=== PATIENT | female | born 1975 | race Caucasian/White ===

== ENCOUNTER 2017-03-11 00:28 | Day surgery (SDC) | payer MEDICAID ==
[~2017-03-11] VITALS: Ht 162.6 cm; Wt 47.2 kg
[~2017-03-11 00:28] MED LIST: ACE500 PO; ARI10 PO; ATOM25CA5 PO; ATOM40CA7 PO; ATOM80CA3 PO; BACOUD TP; BENZ1 PO; CALC1TAB24 PO; CLOB15OI16 TP; CLON-388 PO; CYAN250013 PO; DEXM20PT PO; DIA5 PO; DIP5L PO; DIPH-740 PO; DOC100 PO; DOCU-202 PO; DULO30CA4 PO; DULO60CA56 PO; ESTR0.9T14 PO; FEXO180T74 PO; FEXO180T87 PO; GABA-549 PO; HYDR28.415 TP; HYDR30CR10 TP; IBU200 PO; IBUP-56 PO; LACT250L10 PO; LAMO100T52 PO; LEVO-3 PO; LITH300T18 PO; LOPE-109 PO; LOR1 PO; MULT1CAP41 PO; NAPR220T86 PO; OLAN10TA19 PO; OLAN10TA25 PO; OLOOD OD; ONDA4TAB PO; POLY17PO25 PO; RAN150 PO; RANI-318 PO; VITS42.53 TOP; [UNRECOGNIZED DRUG - CODE] PO; [UNRECOGNIZED DRUG - CODE] TP; [UNRECOGNIZED DRUG - CODE] TP; [UNRECOGNIZED DRUG - OTHER] PO; [UNRECOGNIZED DRUG - OTHER] PO
[2017-03-11] MEDS ORDERED: KETAMINE HCL 500 MG/5 ML VIAL ONE (09:18)
[2017-03-11] MEDS ORDERED: MIDAZOLAM 10 MG/5 ML SYRUP PO ONE ×2 (11:00→13:00)
[2017-03-11] MEDS ORDERED: NORMOSOL R SOLN(*) 1000 ML BAG 1,000 ML IV PRN (13:00)
[2017-03-11] MEDS ORDERED: FAMOTIDINE 20 MG TAB PO ONE (13:00)
[2017-03-11] MEDS ORDERED: TROPICAMIDE 1% OP ONE (13:00)
[2017-03-11 15:23] LABS: PLATELET COUNT, AUTOMATED 399 K/uL (150-450)
[2017-03-11 17:04] LABS: LDL CHOLESTEROL 106 mg/dl
--- NOTE | 2017-03-12 21:49 | OPERATIVE REPORT 1 ---
EVENT DATE: March 11, 2017 SURGEON: Kevin Dozier MD ANESTHESIOLOGIST: John Kimball MD ANESTHESIA: LMA. PREOPERATIVE DIAGNOSES 1. Bilateral cerumen impaction. 2. Autism. POSTOPERATIVE DIAGNOSES 1. Bilateral cerumen impaction. 2. Autism. PROCEDURES PERFORMED 1. Bilateral cerumen disimpaction. 2. Ear examination under anesthesia. INDICATIONS Please refer to the preoperative note. DESCRIPTION OF PROCEDURE The patient was positively identified in the preoperative area. She was accompanied there by her guardian. Risks discussed included, but were not limited to tympanic membrane perforation and those associated with anesthesia. She was brought back to the operative suite, laid supine on the operative table , and anesthesia was administered. Once asleep, the patient was positioned and prepped and draped in the usual sterile fashion. The microscope was brought into place, and a speculum was placed in the right external auditory canal. Cerumen was removed. The tympanic membrane is intact and clear. I then proceeded with the contralateral ear. In a similar fashion, a speculum was placed. The cerumen was removed. The tympanic membrane was visualized and intact and clear. The patient was then turned over to Dr. Kim for an eye exam under anesthesia. Estimated blood loss for my portion of the case was none. No complications. JASON
== END 2017-03-11 17:15 | disposition home or self-care (01) ==
LOC: OR 00:28
PROVIDERS: ATTEND Otolaryngology
DX: H61.23 Impacted cerumen, bilateral (principal); F84.0 Autistic disorder; G80.9 Cerebral palsy, unspecified; E03.9 Hypothyroidism, unspecified; K21.9 Gastro-esophageal reflux disease without esophagitis; L40.9 Psoriasis, unspecified; F32.9 Major depressive disorder, single episode, unspecified
CPT/HCPCS: 36415; 80178; 82040; 82247; 82306; 82310; 82374; 82435; 82465; 82565; 82607; 82947; 83036; 83718; 84075; 84132; 84155; 84295; 84436; 84443; 84450; 84460; 84478; 84481; 84520; 85025

== ENCOUNTER → 2017-04-30 | Outpatient (CLI) | payer MEDICAID ==
--- NOTE | 2017-04-30 15:54 | RADIOLOGY IMAGING REPORT ---
FACILITY: [facility] - [place] PATIENT NAME: Tiny Lock : 1975 MR: [id number] V: [id number] EXAM DATE: ORDERING PHYSICIAN: KASHIF LACKEY TECHNOLOGIST: Location: [facility] - [place] Patient: Tiny Lock : 1975 Visit/Account:[id number] Date of Sevice: 04/30/2017 Exam type: 2 views right hip History: Right hip pain Comparison: None. Findings: Patient cannot lie flat. No definite acute fracture the pelvis or right hip. Subtle lucency of the right intratrochanteric hip region appears to represent overlapping soft tissue shadows. Degenerativ e changes are noted in the SI joints. Calcified phleboliths in the pelvis are noted. IMPRESSION: 1. No definite acute fracture or dislocation of the pelvis or right hip. Subtle lucency in the righ t intertrochanteric hip region is felt to be overlapping shadows. Report Dictated By: Arnulfo Cadet MD at 04/30/2017 3:47 PM Report E-Signed By: Arnulfo Cadet MD at 04/30/2017 3:49 PM WSN:[id number]
== END ==
LOC: RAD 15:02
PROVIDERS: ATTEND Nurse Practitioner Family
DX: M53.3 Sacrococcygeal disorders, not elsewhere classified (principal); I87.8 Other specified disorders of veins

== ENCOUNTER → 2018-01-03 | Outpatient (REF) | payer MEDICARE, MEDICAID ==
[~2018-01-03] MED LIST changes: +CIPDEXPT EACH EAR; +ESTR-33 PO; +LEV112 PO
== END ==
LOC: ZZSENDIN 14:29 → EDSTATUS 15:53
PROVIDERS: ATTEND Nurse Practitioner Family
DX: R35.0 Frequency of micturition (principal)
CPT/HCPCS: 81001

== ENCOUNTER 2018-01-08 12:54 | Emergency (ER) | payer MEDICARE, MEDICAID ==
[2018-01-08] MEDS ORDERED: KETAMINE HCL 500 MG/5 ML VIAL IM ONE (13:40)
--- NOTE | 2018-01-08 13:59 | ER Report ---
History and Physical Time Seen By MD: 13:00 Hx. of Stated Complaint: pt fell forward, presents with nose laceration and bloody nose. CP denies LOC HPI/ROS CHIEF COMPLAINT: Fall facial trauma HISTORY OF PRESENT ILLNESS: 42-year-old female history as cerebral palsy and autism had a mechanical fall onto her face has an obvious nasal laceration probable fracture due to her baseline combative mentality unable to do much of a physical exam other than what is documented patient can't give any history at this time patient is unwilling to cooperate and examination REVIEW OF SYSTEMS: Respiratory: No cough, no dyspnea. Cardiovascular: No chest pain, no palpitations. Gastrointestinal: No vomiting, no abdominal pain. Musculoskeletal: No back pain. Remainder of the 14 system rev: No Allergies: Coded Allergies: paroxetine (Verified Allergy, Mild, [facility], 03/05/14) Home Meds Active Scripts Fexofenadine Hcl (FEXOFENADINE HCL) 180 Mg Tablet, 180 MG PO QDAY, #90 TAB 4 Refills Prov:MUKUL AZUL APRNP-C 12/20/17 Estradiol (ESTRADIOL) 1 Mg Tablet, 1 TAB PO DAILY, #30 TAB 5 Refills Prov:MUKUL AZUL APRN PHARMACY MESSENGER-C 11/12/17 Reported Medications Levothyroxine Sodium (LEVOTHYROXINE SODIUM) 0.112 Mg Tab, 1 TAB PO QDAY, #90 TAB 0 Refills 10/23/17 Polyethylene Glycol 3350 (MIRALAX) 17 Gm Powd.pack, 17 GM PO, PKT 01/07/17 Clobetasol Propionate (CLOBETASOL PROPIONATE) Unknown Strength Shampoo, TP QDAY 01/07/17 Diphenhydramine Hcl (BENADRYL) 25 Mg Capsule, 25 MG PO Q6-8H, CAPSULE 01/07/17 Benztropine Mesylate (BENZTROPINE MESYLATE) 1 Mg Tablet, 1 MG PO BID 03/22/16 Cyanocobalamin (Vitamin B-12) (Vitamin B12) 2,500 Mcg Tab.chew, 1000 MG PO QDAY 03/22/16 Atomoxetine Hcl (STRATTERA) 80 Mg Capsule, 80 MG PO QDAY, #10 CAP 03/22/16 Ranitidine Hcl (RANITIDINE HCL) 150 Mg Tablet, 150 MG PO QDAY 03/22/16 Gabapentin (GABAPENTIN) 300 Mg Capsule, 300 MG PO QDAY, CAPSULE 03/22/16 Duloxetine Hcl (CYMBALTA) 60 Mg Capsule.dr, 60 MG PO QDAY, #10 CAP 03/22/16 Docusate Sodium (DOCUSATE SODIUM) 100 Mg Capsule, 100 MG PO BID, CAPSULE 03/22/16 Clonazepam (CLONAZEPAM) 0.5 Mg Tab.rapdis, 0.5 MG PO BID, #6 TAB 03/22/16 [garden blend vit] No Conflict Check, 1 TAB PO BID 03/22/16 [orchard blend vit] No Conflict Check, 1 TAB PO BID 03/22/16 Olanzapine (OLANZAPINE) 10 Mg Tablet, 10 MG PO QDAY PRN for ANXIETY 03/22/16 Naproxen Sodium (NAPROXEN SODIUM) 220 Mg Tablet, 220 MG PO BID PRN for ACHES,PAIN AND INFLAMMATION, TAB 03/22/16 [place] Carbonate (LITHIUM CARBONATE) 300 Mg Tablet, 300 MG PO BID 03/22/16 Lamotrigine (LAMOTRIGINE) 100 Mg Tablet, 200 MG PO DAILY 03/22/16 Ibuprofen (IBUPROFEN) 200 Mg Tablet, 2 TAB PO Q6H PRN for INFLAMATION, ACHES AND PAINS, TAB 03/22/16 Hydrocortisone 2.5 % 30 GM CREAM (Hydrocortisone 2.5 % 30 GM CREAM) 2.5 % Cream.appl, 1 TWAN TP BID PRN for EXCEMA 03/22/16 Hydrocortisone/Aloe Vera (HYDROCORTISONE 1% OINTMENT) 28 Gm Oint...g., 1 TWAN TP PRN PRN for ITCHING 03/22/16 Bacitracin (BACITRACIN ZINC) 0.9 Gm Oint, 1 TWAN TP PRN PRN for RASH 03/22/16 Loperamide Hcl (ANTI-DIARRHEAL) 2 Mg Tablet, 4 MG PO PRN PRN for DIARRHEA 03/22/16 Calcium Carbonate/Mag Hydrox (ANTACID CHEWABLE TABLET) 1 Each Tab.chew, 1000 MG PO PRN PRN for REFLUX, TAB.CHEW 03/22/16 Vits A and D/White Pet/Lanolin (A and D Ointment) 42.5 Gm Oint...g., 1 TWAN TOP BID 03/22/16 Lorazepam (ATIVAN (OR EQUIV)) 1 Mg Tab, 2 MG PO PRN 4/12/13 Acetaminophen (TYLENOL 500 MG (OR EQUIV)) 500 Mg Tab, 500 MG PO Q4-6H PRN 06/06/12 Dexmethylphenidate Hcl (Focalin Xr) 20 Mg Cpmp.50.50, 20 MG PO DAILY, 0 Refills 09/22/09 Aripiprazole (Abilify) 10 Mg Tab, 25 MG PO QDAY, 0 Refills 2.5 8 AM 09/22/09 Reviewed Nurses Notes: Yes Old Medical Records Reviewed: Yes Hx Smoking: No Smoking Status: Never Smoker Hx Substance Use Disorder: No Hx Alcohol Use: No Constitutional Vital Sign - Last 24 Hours 01/08/18 01/08/18 12:55 14:44 Temp 98.0 Pulse 82 100 Resp 18 18 B/P (MAP) 120/104 104/84 (91) Pulse Ox 90 92 O2 Delivery Room Air Room Air Physical Exam General Appearance: The patient is alert, has no immediate need for airway protection and no current signs of toxicity. At baseline non-cooperative to exam Eyes: Pupils equal and round no injection. Respiratory: Chest is non tender, lungs are clear to auscultation. Cardiac: regular rate and rhythm [ ] Gastrointestinal: Abdomen is soft and non tender, no masses, bowel sounds normal. Musculoskeletal: Neck: Neck is supple and non tender. Extremities have full range of motion and are non tender. Skin: Abrasion to the nasal bone bridge of the nose obvious bleeding Facial examination able to accomplish due to patient's inability to cooperate with exam DIFFERENTIAL DIAGNOSIS: After history and physical exam differential diagnosis was considered for is a bone fracture facial bone fractures contusion abrasion laceration Medical Decision Making ED Course/Re-evaluation ED Course 42-year-old female history of disability comes emergency Department status post fall CT vessel facial after sedation reported a nasal bone fracture tip than surrounding tissue minimally depressed no septal hematoma noted no other fractures noted patient be discharge diagnosis nasal bone fracture abrasional be cleaned Decision to Disposition Date: Jan 08, 2018 Decision to Disposition Time: 15:14 Depart Departure Latest Vital Signs Vital Signs Date Time Temp Pulse Resp B/P (MAP) Pulse Ox O2 Delivery O2 Flow Rate FiO2 01/08/18 14:44 100 18 104/84 (91) 92 Room Air 01/08/18 12:55 98.0 Impression: Primary Impression: Nasal bone fracture Condition: Improved Disposition: HOME OR SELF-CARE Referrals: MIRNA HINOJOSA MD (PCP) 5 Days Patient Instructions: Nasal Fracture (DC) EVERETT NORTON MD Jan 08, 2018 13:59
[2018-01-08 14:44] VITALS: BP 104/84
--- NOTE | 2018-01-08 15:10 | RADIOLOGY IMAGING REPORT ---
FACILITY: [facility] [place] PATIENT NAME: Tiny Lock : 1975 MR: [id number] V: [id number] EXAM DATE: ORDERING PHYSICIAN: EVERETT NORTON TECHNOLOGIST: Location: [facility] - [place] Patient: Tiny Lock : 1975 Visit/Account:[id number] Date of Sevice: 01/08/2018 FACIAL BONES W/O CONTRAST HISTORY: trauma COMPARISON STUDIES: none TECHNIQUE: Axial images were obtained from the superior aspect of the orbits through the inferior as pect of mandible without intravenous contrast. Coronal and sagittal reformatted images were obtained from the axial source data. One of the following dose optimization techniques was utilized in the per formance of this exam: Automated exposure control; adjustment of the mA and/or kV according to the pa tient's size; or use of an iterative reconstruction technique. Specific details can be referenced i n the facility's radiology CT exam operational policy. CONTRAST: None FINDINGS: Soft Tissues: There is some soft tissue swelling overlying the nose Mandible / TMJ: Negative Maxilla / pterygoid plates: Negative Zygoma: Negative Orbits: Negative Nasal bones / nasal septum: There is a mildly depressed fracture of the left nasal bone involving the tip. Soft tissue swelling irregularity is noted. Nasal septum is minimally bowed towards the left Sinuses: Minimal mucosal thickening in the right maxillary sinus is noted. Mastoids: Negative Visualized brain: Negative Cervical spine: Negative Other findings: None significant IMPRESSION: 1. Minimally depressed left nasal fracture involving the tip. Surrounding soft tissue swelling is not ed. Nasal septum is minimally bowed towards the left. Report Dictated By: Arnulfo Cadet MD at 01/08/2018 3:00 PM Report E-Signed By: Arnulfo Cadet MD at 01/08/2018 3:05 PM WSN:[id number]
== END 2018-01-08 13:45 | disposition home or self-care (01) ==
LOC: ER 13:15
DX: S02.2XXA Fracture of nasal bones, initial encounter for closed fracture (principal)
CPT/HCPCS: 70486; 96372; 99284

== ENCOUNTER 2018-01-14 12:51 | Emergency (ER) | payer MEDICARE, MEDICAID ==
--- NOTE | 2018-01-14 12:56 | ER Report ---
History and Physical Time Seen By MD: 12:56 HPI/ROS CHIEF COMPLAINT: Suture removal HISTORY OF PRESENT ILLNESS: This is a 42-year-old female, a resident of the [facility] who presents to the emergency department to have sutures removed. The patient fell last week injuring her nose, had 2 sutures placed. Patient is developmentally delayed. The patient did well last week with a ketamine injection according to the staff. The staff states that this was less traumatic for the patient and are requesting to have the same thing done to have the sutures removed. During my examination of the patient she is not willing to let me assess her or anybody else touch her. There is some erythema and what appears to be the beginning of an infection on the nose, the staff states the patient has been rubbing the sutures, they have not been able to keep it covered, nor have they been able to apply bacitracin as the patient will continue to wipe it off. No fevers or chills at home. No other complaints. REVIEW OF SYSTEMS: Respiratory: No cough, no dyspnea. Cardiovascular: No chest pain, no palpitations. Gastrointestinal: No vomiting, no abdominal pain. Musculoskeletal: No back pain. Integumentary: As above. Allergies: Coded Allergies: paroxetine (Verified Allergy, Mild, [facility], 01/14/18) Home Meds Active Scripts Cephalexin 500 Mg Tab (KEFLEX 500 MG TAB) 500 Mg Tablet, 500 MG PO Q6H, #28 TAB Prov:RADHA ESQUIVEL SAMPLE PATTERNMAKER-BC 01/14/18 Fexofenadine Hcl (FEXOFENADINE HCL) 180 Mg Tablet, 180 MG PO QDAY, #90 TAB 4 Refills Prov:MUKUL AZUL APRN SAMPLE PATTERNMAKER-C 12/20/17 Estradiol (ESTRADIOL) 1 Mg Tablet, 1 TAB PO DAILY, #30 TAB 5 Refills Prov:MUKUL AZUL APRN SAMPLE PATTERNMAKER-C 11/12/17 Reported Medications Levothyroxine Sodium (LEVOTHYROXINE SODIUM) 0.112 Mg Tab, 1 TAB PO QDAY, #90 TAB 0 Refills 10/23/17 Polyethylene Glycol 3350 (MIRALAX) 17 Gm Powd.pack, 17 GM PO, PKT 01/07/17 Clobetasol Propionate (CLOBETASOL PROPIONATE) Unknown Strength Shampoo, TP QDAY 01/07/17 Diphenhydramine Hcl (BENADRYL) 25 Mg Capsule, 25 MG PO Q6-8H, CAPSULE 01/07/17 Benztropine Mesylate (BENZTROPINE MESYLATE) 1 Mg Tablet, 1 MG PO BID 03/22/16 Cyanocobalamin (Vitamin B-12) (Vitamin B12) 2,500 Mcg Tab.chew, 1000 MG PO QDAY 03/22/16 Atomoxetine Hcl (STRATTERA) 80 Mg Capsule, 80 MG PO QDAY, #10 CAP 03/22/16 Ranitidine Hcl (RANITIDINE HCL) 150 Mg Tablet, 150 MG PO QDAY 03/22/16 Gabapentin (GABAPENTIN) 300 Mg Capsule, 300 MG PO QDAY, CAPSULE 03/22/16 Duloxetine Hcl (CYMBALTA) 60 Mg Capsule.dr, 60 MG PO QDAY, #10 CAP 03/22/16 Docusate Sodium (DOCUSATE SODIUM) 100 Mg Capsule, 100 MG PO BID, CAPSULE 03/22/16 Clonazepam (CLONAZEPAM) 0.5 Mg Tab.rapdis, 0.5 MG PO BID, #6 TAB 03/22/16 [garden blend vit] No Conflict Check, 1 TAB PO BID 03/22/16 [orchard blend vit] No Conflict Check, 1 TAB PO BID 03/22/16 Olanzapine (OLANZAPINE) 10 Mg Tablet, 10 MG PO QDAY PRN for ANXIETY 03/22/16 Naproxen Sodium (NAPROXEN SODIUM) 220 Mg Tablet, 220 MG PO BID PRN for ACHES,PAIN AND INFLAMMATION, TAB 03/22/16 [place] Carbonate (LITHIUM CARBONATE) 300 Mg Tablet, 300 MG PO BID 03/22/16 Lamotrigine (LAMOTRIGINE) 100 Mg Tablet, 200 MG PO DAILY 03/22/16 Ibuprofen (IBUPROFEN) 200 Mg Tablet, 2 TAB PO Q6H PRN for INFLAMATION, ACHES AND PAINS, TAB 03/22/16 Hydrocortisone 2.5 % 30 GM CREAM (Hydrocortisone 2.5 % 30 GM CREAM) 2.5 % Cream.appl, 1 TWAN TP BID PRN for EXCEMA 03/22/16 Hydrocortisone/Aloe Vera (HYDROCORTISONE 1% OINTMENT) 28 Gm Oint...g., 1 TWAN TP PRN PRN for ITCHING 03/22/16 Bacitracin (BACITRACIN ZINC) 0.9 Gm Oint, 1 TWAN TP PRN PRN for RASH 03/22/16 Loperamide Hcl (ANTI-DIARRHEAL) 2 Mg Tablet, 4 MG PO PRN PRN for DIARRHEA 03/22/16 Calcium Carbonate/Mag Hydrox (ANTACID CHEWABLE TABLET) 1 Each Tab.chew, 1000 MG PO PRN PRN for REFLUX, TAB.CHEW 03/22/16 Vits A and D/White Pet/Lanolin (A and D Ointment) 42.5 Gm Oint...g., 1 TWAN TOP BID 03/22/16 Lorazepam (ATIVAN (OR EQUIV)) 1 Mg Tab, 2 MG PO PRN 06/06/12 Acetaminophen (TYLENOL 500 MG (OR EQUIV)) 500 Mg Tab, 500 MG PO Q4-6H PRN 06/06/12 Dexmethylphenidate Hcl (Focalin Xr) 20 Mg Cpmp.50.50, 20 MG PO DAILY, 0 Refills 09/22/09 Aripiprazole (Abilify) 10 Mg Tab, 25 MG PO QDAY, 0 Refills 2.5 8 AM 09/22/09 Past Medical/Surgical History The patient has a past medical and surgical history of autistic disorder, GERD, CPAP, psoriasis, psychosis, anxiety, depression, hysterectomy. Reviewed Nurses Notes: Yes Hx Smoking: No Smoking Status: Never Smoker Hx Substance Use Disorder: No Hx Alcohol Use: No Constitutional Vital Sign - Last 24 Hours 01/14/18 01/14/18 14:51 15:24 Pulse 112 110 Resp 16 16 B/P (MAP) 139/94 (109) 130/90 (103) Pulse Ox 94 94 O2 Delivery Room Air Physical Exam General Appearance: The patient is alert, has no immediate need for airway protection and no current signs of toxicity. Eyes: Pupils equal and round no injection. Respiratory: Chest is non tender, lungs are clear to auscultation. Cardiac: regular rate and rhythm. Gastrointestinal: Abdomen is soft and non tender, no masses, bowel sounds normal. Musculoskeletal: Neck: Neck is supple and non tender. Extremities have full range of motion and are non tender. Skin: 2 sutures to the bridge of the nose. There is some erythema with what appears to be the start of an infection to the suture sites. No purulent drainage noted. DIFFERENTIAL DIAGNOSIS: After history and physical exam differential diagnosis was considered for suture removal, cellulitis. Medical Decision Making ED Course/Re-evaluation ED Course The patient was admitted to a room. A history and physical were obtained. Differential diagnoses were considered. After evaluating the patient, the staff were requesting that she did so well last time she was here with ketamine that we do a ketamine to have the sutures removed. I did try to assess the patient, considered not using the ketamine however I was unable to get close enough to even fully assess the patient, she does become very agitated and aggressive toward hospital employees. We did give the patient 200 mg IM ketamine, she tolerated the medication very well, we were able to assist holding her head still and removed 2 sutures. There is some underlying erythema and what appears to be the start of an infection, I did start patient on Keflex. I did explain this to the [facility] staff. There were no other concerns at this time, patient did very well and was escorted out, she was at baseline at the time of discharge. Decision to Disposition Date: Jan 14, 2018 Decision to Disposition Time: 15:17 Depart Departure Latest Vital Signs Vital Signs Date Time Temp Pulse Resp B/P (MAP) Pulse Ox O2 Delivery O2 Flow Rate FiO2 01/14/18 15:24 110 16 130/90 (103) 94 01/14/18 14:51 Room Air Impression: Primary Impression: Visit for suture removal Condition: Improved Disposition: HOME OR SELF-CARE Referrals: MIRNA HINOJOSA MD (PCP) New Scripts Cephalexin 500 Mg Tab (KEFLEX 500 MG TAB) 500 Mg Tablet 500 MG PO Q6H, #28 TAB Prov: RADHA ESQUIVEL-BC 01/14/18 Patient Instructions: Acute Wound Care (ED), Cellulitis (ED) Additional Instructions: We were able to remove 2 sutures without complication today. I am concerned that there is an underlying skin infection that developing on her nose, therefore I'm good start Tiny on antibiotics. I would recommend following up with her primary care provider or one of the partners next week for reevaluation. Drink plenty of water. Get plenty of rest. Return to the emergency department for any other concerns or worsening symptoms. RADHA ESQUIVEL SAMPLE PATTERNMAKER-BC Jan 14, 2018 12:56
[2018-01-14] MEDS ORDERED: KETAMINE HCL 500 MG/5 ML VIAL IM ONE (13:15)
[2018-01-14] MEDS ORDERED: CEPH500T7 PO (14:55)
[2018-01-14 15:24] VITALS: BP 130/90
== END 2018-01-14 15:30 | disposition home or self-care (01) ==
LOC: ER 13:00
DX: S01.21XD Laceration without foreign body of nose, subsequent encounter (principal)
CPT/HCPCS: 99283